=== PATIENT | male | born 1960 | race African-American/Black ===

== ENCOUNTER 2017-04-14 17:14 | Emergency (ER) | payer MEDICAID, OTHER ==
[~2017-04-14] VITALS: Ht 175.3 cm; Wt 69.0 kg
[2017-04-14] MEDS ORDERED: ACETAMINOPHEN 325MG TABLET PO ONE (20:30)
[2017-04-14 21:00] VITALS: BP 127/77
== END 2017-04-14 21:35 | disposition home or self-care (01) ==
LOC: ER 18:17
DX: K62.3 Rectal prolapse (principal); K64.9 Unspecified hemorrhoids; F17.200 Nicotine dependence, unspecified, uncomplicated; Z88.0 Allergy status to penicillin
CPT/HCPCS: 99283; Z7610

== ENCOUNTER 2019-12-28 13:12 | Emergency (ER) | payer MEDICAID ==
[~2019-12-28] VITALS: Ht 185.4 cm; Wt 65.0 kg
[2019-12-28 13:47] VITALS: BP 139/80
== END 2019-12-28 16:39 | disposition home or self-care (01) ==
LOC: ER 13:23
DX: S89.91XA Unspecified injury of right lower leg, initial encounter (principal); Z88.0 Allergy status to penicillin; X58.XXXA Exposure to other specified factors, initial encounter; Y93.89 Activity, other specified; Y92.89 Other specified places as the place of occurrence of the external cause; Y99.8 Other external cause status
CPT/HCPCS: 73562; 73590; 99284; L1830

== ENCOUNTER 2022-02-20 09:22 | Emergency (ER) | payer MEDICAID ==
[~2022-02-20] VITALS: Ht 175.3 cm; Wt 64.0 kg
[2022-02-20] MEDS ORDERED: HYDROCODONE/ACETAMINOPHEN 5/325MG TABLET PO ONE (10:15)
[2022-02-20 10:35] LABS: BASOPHILS % 0.6 % (0.0-2.0); EOSINOPHILS % 2.1 % (0.0-5.0); HEMATOCRIT. 46.6 % (42.0-52.0); HEMOGLOBIN. 15.4 g/dL (14.0-18.0); LYMPHOCYTES % 23.7 % (20.0-50.0); MEAN CORPUSCULAR HEMOGLOBIN 31.4 pg (28.0-32.0); MEAN CORPUSCULAR VOLUME 94.8 fL (80.0-94.0); MEAN PLATELET VOLUME 6.9 fl (7.4-10.4); MONOCYTES % 9.7 % (2.0-8.0); NEUTROPHILS % 63.9 % (40.0-76.0); PLATELET 409 x1000/uL (130-400); RED BLOOD CELL COUNT 4.92 mill/uL (4.7-6.1); RED CELL DISTRIBUTION WIDTH 12.7 % (11.6-14.6)
[2022-02-20 10:43] LABS: CLARITY URINE CLEAR (CLEAR); COLOR URINE YELLOW (YELLOW); KETONES URINE NEGATIVE (NEGATIVE); LEUKOCYTE ESTERASE URINE NEGATIVE (NEGATIVE); NITRITE URINE NEGATIVE (NEGATIVE); OCCULT BLOOD URINE NEGATIVE (NEGATIVE); PH URINE 5.5 (4.5-8.0); PROTEIN URINE NEGATIVE (NEGATIVE); SPECIFIC GRAVITY URINE 1.005 (1.005-1.030); UROBILINOGEN URINE 0.2 E.U./dL (0.2-1.0)
[2022-02-20 10:44] LABS: CHLORIDE 102 mEq/L (98-107)
[2022-02-20 11:25] VITALS: BP 139/90
[2022-02-20] MEDS ORDERED: TRAM50TA3 MT (13:06)
== END 2022-02-20 13:48 | disposition home or self-care (01) ==
LOC: ER 09:22
DX: R06.00 Dyspnea, unspecified (principal); J90 Pleural effusion, not elsewhere classified; M25.511 Pain in right shoulder; M54.12 Radiculopathy, cervical region; M19.90 Unspecified osteoarthritis, unspecified site; R94.31 Abnormal electrocardiogram [ECG] [EKG]; Z88.0 Allergy status to penicillin; Z96.649 Presence of unspecified artificial hip joint; Z98.890 Other specified postprocedural states
CPT/HCPCS: 36415; 71101; 73030; 74176; 80053; 81003; 83690; 83880; 84484; 85025; 93005; 99285; Z7610